=== PATIENT | male | born 1950 | race Caucasian/White ===

== ENCOUNTER 2025-01-02 11:30 | Inpatient (IN) ==
[2025-01-02 12:21] LABS: Hematocrit (blood only) 36.1 % (42.0-52.0); Hemoglobin 12.4 g/dl (14.0-18.0); Immature Granulocytes # (auto) 0.05 K/uL (0.01-0.20); Immature Granulocytes % (auto) 0.7 %; Mean Corpuscular Hemoglobin 31.8 pg (25.0-34.0); Mean Corpuscular Volume 92.6 fL (80.0-100.0); Platelet Count 267 K/uL (130-400); RDW Standard Deviation 43.3 fL (36.4-46.3); Red Blood Count 3.90 M/uL (4.70-6.10); White Blood Count 7.04 K/ul (4.8-10.8)
--- NOTE | 2025-01-02 12:25 | Emergency Department Note ---
Impression & Plan Acute UTI (urinary tract infection) ED Provider Note ED Provider Note NAME: KARTHIK KNOWLES AGE:74 SEX: Male : 1950 ARRIVES VIA: Private vehicle INFORMANT: Patient ED PROVIDER(s): Ana Hickey DO CHIEF COMPLAINT: Called by pharmacist to return due to abnormal urine culture HPI: This is a 74-year-old male presents emergency department after it was noted that his recent urine culture grew out Klebsiella ESBL which was resistant to oral agents and had only 3 options for treatment which were all IV. Patient had been started on cefdinir when he was seen and evaluated the other day and able to be discharged home. Patient denies fevers or chills, abdominal pain, back pain, nausea or vomiting. notes his appetite has been slightly decreased and he is not very good about drinking water. He states he does have dysuria and frequency. He has previously had urinary tract infections. He denies any other history of kidney problems. PAST MEDICAL HISTORY:See Below PAST SURGICAL HISTORY:See Below FAMILY HISTORY:See Below SOCIAL HISTORY:See Below HOME MEDICATIONS:See Below ALLERGIES:See Below VITALS:See Below PHYSICAL EXAMINATION: GENERAL: alert, well appearing, well nourished, no distress, non-toxic EYE EXAM: normal conjunctiva, PERRL and EOM's grossly intact OROPHARYNX: no exudate, no erythema, lips, buccal mucosa, and tongue normal and mucous membranes are moist NECK: supple, no nuchal rigidity, no adenopathy, non-tender LUNGS: Clear to auscultation. Normal chest wall mechanics, no w/r/r HEART: no murmurs, S1 normal and S2 normal ABDOMEN: abdomen soft, non-tender, normo-active bowel sounds, no masses, no rebound or guarding. BACK: Back is symmetrical on inspection and there is no deformity, no midline tenderness, no CVA tenderness. SKIN: no rashes, petechiae, orbruising UPPER EXTREMITIES: upper extremities are grossly normal. FROM, nml pulses b/l. LOWER EXTREMITIES: No pitting edema. FROM, nml pulses b/l. NEURO EXAM: Normal sensorium, cranial nerves II-XII grossly intact, normal speech, no facial droop,nogross weakness of arms, no gross weakness of legs. Gross sensation intact. No ataxia. Vital Signs: reviewed and remarkable Differential Diagnosis: UTI, pyelonephritis, bladder stone, bladder polyp, ureterolithiasis, bacteremia/sepsis, failed outpatient management, as well as others were considered MEDICAL DECISION MAKING: This is a 74-year-old male presents emerged department after being recontacted following results of urine culture which showed a Klebsiella ESBL with only IV therapies available. Patient returned to the emergency department still complaining of dysuria and frequency. He denied any other systemic or evolving symptoms. He was afebrile and hemodynamically stable. Labs drawn and sent, IV established, patient monitored on telemetry. He was started on IV fluids as well as IV ertapenem after discussion with the ED pharmacist, Jamil. Case discussed with the hospitalist team for additional evaluation and management. Consultation(s): 1234: Discussed with Dr. Ceron, [facility] hospitalist team, for additional evaluation and mgmt. ER Treatment Provided: See below Diagnostics Interpreted By Me: -Cardiac Monitoring: An order was placed for continuous cardiac monitoring. The monitor shows a rate of 70 with normal sinus rhythm. -Laboratory studies: As stated above and show below. Triage Nursing Note Reviewed Prior/Outside Records Reviewed Past Med/Surg History Problem List (Updated 01/02/25 @ 14:15 by Background Daemon) Acute UTI (urinary tract infection) (Acute) Acute UTI (Acute) Upper respiratory infection, viral (Acute) Pneumonia (Acute) Multiple pulmonary nodules COPD with emphysema Multifocal pneumonia Elevated LFTs Bilateral lower extremity edema Constipation Rhinovirus infection Acute respiratory failure with hypoxia Sepsis Hypoxia (Acute) Dyspnea (Acute) Encounter for pre-operative examination (Acute) Anxiety (Acute) Chest pain (Acute 06/26/14) Syncope, near (Acute) Unstable angina (Acute) 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 DATE/MN - HX C/P...10-20 % BLOCKAGES - NO STENT(S) History of endoscopy History of colonoscopy History of right inguinal hernia Hx of cholecystectomy + UMBILICAL HERNIA REPAIR Family History Father Myocardial infarction Brother Nephrolithiasis Social History Smoking Status: Former smoker Tobacco Type: Cigarettes Do You Dip or Chew Tobacco: No; Hx Alcohol Use: No Hx Substance Use: No Preferred Language: Peruvian Communication Ability: Effective Copyright Expert Required: No Beliefs That Will Affect Care: None marital status: Current Living Situation: Spouse Other Information That Helps Us Care for You: No Feels Safe at Home: Yes Safety Concerns: Feels Safe At This Time Assistive Devices: None Allergies Allergies Allergy/AdvReac Type Severity Reaction Status Date / Time No Known Allergies Allergy Unknown Verified 12/30/24 20:25 Home Meds Home Medications Medication Instructions Recorded Confirmed carvedilol 12.5 mg tablet 12.5 mg PO BIDM 09/01/20 01/02/25 simvastatin 20 mg tablet 20 mg PO HS 09/01/20 01/02/25 losartan 50 mg tablet 50 mg PO QAM 05/01/24 01/02/25 omeprazole 20 mg capsule,delayed 20 mg PO DAILY 01/02/25 01/02/25 release Previous Rx's Medication Instructions Recorded finasteride 5 mg tablet 5 mg PO DAILY #90 tabs 11/11/24 tamsulosin 0.4 mg capsule 0.4 mg PO DAILY #90 caps 11/11/24 L.acidop,casei,lactis,rham-B.lact,ralph 1 cap PO DAILY #10 caps 12/14/24 625 mg (10 billion cell) capsule (Advanced Probiotic) docusate sodium 100 mg capsule 100 mg PO BID PRN Constipation #30 12/14/24 caps polyethylene glycol 3350 17 gram 17 g PO DAILY PRN Constipation #15 12/14/24 oral powder packet (Miralax) ea cefdinir 300 mg capsule 300 mg PO BID 10 days #20 caps 12/30/24 ondansetron 4 mg disintegrating 4 mg PO Q8H PRN nausea and 12/30/24 tablet vomiting #30 tabs tramadol 50 mg tablet 50 mg PO BID PRN pain #11 tabs 12/30/24 Results & Data (ED) Vital Signs Vital Signs - 24 hr 01/02/25 11:33 Temperature 36.7 C Temperature Source Temporal Artery Scan Pulse Rate 76 Respiratory Rate 20 Respiratory Effort / Characteristics Non-Labored Spontaneous Respiratory Depth Normal Blood Pressure 142/75 H Blood Pressure Mean 97 Blood Pressure Position Sitting Pulse Oximetry 94 Oxygen Delivery Method Room Air Sepsis Recent Fever Within 48 Hours No Sepsis New/Unexplained Change in Mental Status No Sepsis Action Taken by Nursing No Action Required Laboratory Data 01/02/25 11:50 01/03/25 07:24 Lab Results 01/02/25 Range/Units 11:50 WBC 7.04 (4.8-10.8) K/ul RBC 3.90 L (4.70-6.10) M/uL Hgb 12.4 L (14.0-18.0) g/dl Hct 36.1 L (42.0-52.0) % MCV 92.6 (80.0-100.0) fL MCH 31.8 (25.0-34.0) pg MCHC 34.3 (32.0-36.0) g/dL RDW Std Deviation 43.3 (36.4-46.3) fL RDW Coeff of Padma 13.0 (11.5-14.5) % Plt Count 267 (130-400) K/uL MPV 10.0 (9.4-12.4) fL Immature Gran % (Auto) 0.7 % Neut % (Auto) 62.7 % Lymph % (Auto) 16.9 % Alfalfa % (Auto) 14.6 % Eos % (Auto) 4.7 % Baso % (Auto) 0.4 % Neut # (Auto) 4.41 (1.40-6.50) K/uL Lymph # (Auto) 1.19 L (1.20-3.40) K/uL [place] # (Auto) 1.03 H (0.11-0.59) K/uL Eos # (Auto) 0.33 (0.00-0.50) K/uL Baso # (Auto) 0.03 (0.00-0.20) K/uL Immature Gran # (Auto) 0.05 (0.01-0.20) K/uL PT 10.5 (9.0-12.0) Seconds INR 1.0 (0.9-1.1) Sodium 135 L (136-145) mmol/L Potassium 4.2 (3.5-5.1) mmol/L Chloride 103 (98-107) mmol/L Carbon Dioxide 25 (21-32) mmol/L Anion Gap 7 (3-11) BUN 21 (6-23) mg/dl Creatinine 0.85 (0.6-1.4) mg/dl Est Cr Clr Drug Dosing 88.9 ml/min eGFR 91.18 BUN/Creatinine Ratio 24.7 H (10-20) Glucose 95 (70-99(Fasting)) mg/dl Calcium 8.8 (8.6-10.3) mg/dl Magnesium 2.1 (1.7-2.4) mg/dl Total Bilirubin 0.6 (0.2-1.0) mg/dl AST 53 H (13-39) U/L ALT 81 H (7-52) U/L Alkaline Phosphatase 63 (34-104) U/L Total Protein 6.9 (6.0-8.3) gm/dl Albumin 3.4 (3.4-5.0) gm/dl Globulin 3.5 (2.5-4.0) gm/dl Albumin/Globulin Ratio 1.0 (0.9-2) Procalcitonin 0.08 (0-0.5) ng/ml Administered Medications Carvedilol (Carvedilol 12.5 Mg Tab) 12.5 mg PO BIDM [facility] Stop: 02/01/25 16:59 Last Admin: 01/03/25 08:29 Dose: 12.5 mg Documented By: Admin: 01/02/25 17:13 Dose: 12.5 mg Documented By: NEIL Docusate Sodium (Docusate Sodium 100 Mg Cap) 100 mg PO BID PRN PRN Reason: Constipation Stop: 02/01/25 14:14 Last Admin: 01/03/25 08:29 Dose: 100 mg Documented By: NEIL Enoxaparin Sodium (Enoxaparin Inj 40 Mg/0.4 Ml Syr) 40 mg SQ QAM [facility] Stop: 02/01/25 12:59 Last Admin: 01/03/25 10:04 Dose: 40 mg Documented By: Admin: 01/02/25 15:16 Dose: 40 mg Documented By: NEIL Finasteride (Finasteride 5 Mg Tab) 5 mg PO DAILY ТАТЬЯНА Stop: 02/02/25 08:59 Last Admin: 01/03/25 08:29 Dose: 5 mg Documented By: NEIL Ertapenem (Invanz 1000mg) 1,000 mg in 10 mls @ 2 mls/min IV Q24H ТАТЬЯНА Stop: 01/08/25 12:59 Last Admin: 01/03/25 12:47 Dose: 2 mls/min Documented By: NEIL Lactobacillus Acidophilus (Advanced Probiotic 625 Mg Capsule) 625 mg PO DAILY ТАТЬЯНА Stop: 02/02/25 08:59 Last Admin: 01/03/25 08:30 Dose: 625 mg Documented By: NEIL Losartan Potassium (Losartan Potassium 50 Mg Tab) 50 mg PO QAM ТАТЬЯНА Stop: 02/02/25 08:59 Last Admin: 01/03/25 08:29 Dose: 50 mg Documented By: NEIL Pantoprazole Sodium (Pantoprazole 40 Mg Tab) 40 mg PO DAILY ТАТЬЯНА Stop: 02/02/25 08:59 Last Admin: 01/03/25 08:30 Dose: 40 mg Documented By: NEIL Simvastatin (Simvastatin 20 Mg Tab) 20 mg PO HS ТАТЬЯНА Stop: 02/01/25 20:59 Last Admin: 01/02/25 20:15 Dose: 20 mg Documented By: RICO Tamsulosin HCl (Tamsulosin Hcl 0.4 Mg Cap) 0.4 mg PO DAILY ТАТЬЯНА Stop: 02/02/25 08:59 Last Admin: 01/03/25 08:30 Dose: 0.4 mg Documented By: NEIL Discontinued Medications Ertapenem (Invanz 1000mg) 1,000 mg in 10 mls @ 2 mls/min IV NOW STA Stop: 01/02/25 12:12 Last Admin: 01/02/25 12:30 Dose: 2 mls/min Documented By: CEF Magnesium Hydroxide (Magnesium Hydroxide Susp 30 Ml Udc) 30 ml PO NOW ONE Stop: 01/02/25 12:36 Last Admin: 01/02/25 12:37 Dose: 30 ml Documented By: CEF Discharge Plan Visit Data Chief Complaint: Infection Stated Complaint: PHARMACIST REF,NEEDS IV ANTIBIOTIC ED Provider: Ana Hickey Discharge Problem: Acute UTI (urinary tract infection) Patient Disposition: Admitted As Inpatient Condition: Fair Discharge Instructions Interventions: ED Discharge Assessment Last Done: 01/02/25 13:47
[2025-01-02] MEDS: ERTAPENEM 1000MG 1,000 MG/10 ML SYR IV STA (12:30)
[2025-01-02 12:36] LABS: Anion Gap 7.0 (3-11); Blood Urea Nitrogen 21.0 mg/dl (6-23); Calcium 8.8 mg/dl (8.6-10.3); Carbon Dioxide 25.0 mmol/L (21-32); Chloride 103.0 mmol/L (98-107); Creatinine Clr Calc Pharmacy 88.9 ml/min; Glucose 95.0 mg/dl (70-99(Fasting)); Potassium 4.2 mmol/L (3.5-5.1); Sodium 135.0 mmol/L (136-145)
[2025-01-02 12:37] LABS: Alanine Aminotransferase 81.0 U/L (7-52); Albumin Globulin Ratio 1.0 (0.9-2); Alkaline Phosphatase 63.0 U/L (34-104); Bilirubin,Total 0.6 mg/dl (0.2-1.0); Globulin 3.5 gm/dl (2.5-4.0); Magnesium 2.1 mg/dl (1.7-2.4); Total Protein 6.9 gm/dl (6.0-8.3)
[2025-01-02] MEDS: MAGNESIUM HYDROXIDE SUSP 30 ML UDC PO ONE (12:37)
[2025-01-02 13:10] LABS: INR 1.0 (0.9-1.1); Prothrombin Time 10.5 Seconds (9.0-12.0)
--- NOTE | 2025-01-02 13:12 | History & Physical Report ---
Date of Service January 02, 2025 Assessment & Plan (1) Acute UTI (urinary tract infection): Plan: Urinary symptoms since Sunday and came to emergency room on first of this month- CT abdomen pelvis showed no stone or obstructive uropathy with fat stranding around the bladder consistent with cystitis Received intravenous ceftriaxone and was sent home on oral Cefdinir Urine culture came back positive for Klebsiella pneumoniae ESBL and the patient was brought back to emergency room for IV antibiotic Remains afebrile and normal white count and no significant symptoms Started on intravenous ertapenem and will be continued Will likely need to set up home health and continue antibiotic intravenously as an outpatient to finish the course of 7 to 10 days (2) COPD with emphysema: Plan: Remains stable without any acute symptoms (3) BPH with obstruction/lower urinary tract symptoms: Plan: We will continue with current medications (4) Constipation: Plan: Has been on laxatives and will be increased the frequency (5) Hypertension: Plan: Blood pressure remains stable at 127 over a 58 Continue current medications (6) Hyperlipidemia: Plan: Continue statin LFTs are noted to be mildly elevated and will need to be monitored If significant increase in LFTs most likely need to decrease the dose or stop statin (7) Esophageal reflux: Plan: Continue Protonix Plan DVT prophylaxis Subcu Lovenox CODE STATUS Full Discussed with the patient and the in detail History of Present Illness Chief Complaint: Urinary frequency and dysuria since last Sunday Primary Care Provider: Elie Castillo MD Is a 74-year-old male significant past medical history of hypertension, hyperlipidemia, ASCVD, nonobstructive CAD, history of nephrolithiasis, GERD and also history of TIA has been complaining of frequency and dysuria since Sunday last. He was in the emergency room on first of this month and noted to have UTI got a dose of ceftriaxone and then was sent home on cefdinir. The urine culture came back positive for ESBL and he was brought into the emergency room for continuation of care with intravenous antibiotic. He denies any fever and/or chills or any sweating. Still has minimal dysuria and frequency. Denies any abdominal pain nausea and/or vomiting and does not have any other significant symptoms. Only complaint is constipation. He was started with intravenous ertapenem and will be admitted to med/telemetry for continuation of care. Allergies Allergy/AdvReac Type Severity Reaction Status Date / Time No Known Allergies Allergy Unknown Verified 12/30/24 20:25 Home Medications Medication Instructions Recorded Confirmed Type carvedilol 12.5 mg tablet 12.5 mg PO BIDM 09/01/20 01/02/25 History simvastatin 20 mg tablet 20 mg PO HS 09/01/20 01/02/25 History losartan 50 mg tablet 50 mg PO QAM 05/01/24 01/02/25 History finasteride 5 mg tablet 5 mg PO DAILY #90 tabs 11/11/24 01/02/25 Rx tamsulosin 0.4 mg capsule 0.4 mg PO DAILY #90 caps 11/11/24 01/02/25 Rx L.acidop,casei,lactis,rham-B.lact,ralph 1 cap PO DAILY #10 caps 12/14/24 01/02/25 Rx 625 mg (10 billion cell) capsule (Advanced Probiotic) docusate sodium 100 mg capsule 100 mg PO BID PRN Constipation #30 12/14/24 01/02/25 Rx caps polyethylene glycol 3350 17 gram 17 g PO DAILY PRN Constipation #15 12/14/24 01/02/25 Rx oral powder packet (Miralax) ea cefdinir 300 mg capsule 300 mg PO BID 10 days #20 caps 12/30/24 01/02/25 Rx ondansetron 4 mg disintegrating 4 mg PO Q8H PRN nausea and 12/30/24 01/02/25 Rx tablet vomiting #30 tabs tramadol 50 mg tablet 50 mg PO BID PRN pain #11 tabs 12/30/24 01/02/25 Rx omeprazole 20 mg capsule,delayed 20 mg PO DAILY 01/02/25 01/02/25 History release Past Med/Surg History Problem List (Updated 01/02/25 @ 12:25 by Ana Hickey DO) Acute UTI (urinary tract infection) (Acute) Acute UTI (Acute) Upper respiratory infection, viral (Acute) Pneumonia (Acute) Multiple pulmonary nodules COPD with emphysema Multifocal pneumonia Elevated LFTs Bilateral lower extremity edema Constipation Rhinovirus infection Acute respiratory failure with hypoxia Sepsis Hypoxia (Acute) Dyspnea (Acute) Encounter for pre-operative examination (Acute) Anxiety (Acute) Chest pain (Acute 06/26/14) Syncope, near (Acute) Unstable angina (Acute) 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 DATE/MN - HX C/P...10-20 % BLOCKAGES - NO STENT(S) History of endoscopy History of colonoscopy History of right inguinal hernia Hx of cholecystectomy + UMBILICAL HERNIA REPAIR Family History Father Myocardial infarction Brother Nephrolithiasis Social History Smoking Status: Former smoker Tobacco Type: Cigarettes Do You Dip or Chew Tobacco: No; Hx Alcohol Use: Yes (HX ON OCC/NO LONGER AT ALL) Hx Substance Use: No Preferred Language: Faroese Communication Ability: Effective Plumber Apprentice Required: No Beliefs That Will Affect Care: None marital status: Current Living Situation: Spouse and Family Feels Safe at Home: Yes Assistive Devices: None Review of Systems Review of Systems: All systems reviewed and unremarkable except as noted below patient Physical Exam Physical Exam: Lying in bed without any acute distress Constitutional: well developed, well nourished, + ill appearing and + obese Eyes: PERRL, conjunctivae normal, anicteric sclerae ENMT: external ear and nose normal, oropharynx normal Neck: trachea midline, no thyromegaly Respiratory: no respiratory distress Auscultation: + diminished lung sounds ( at the bases with minimal crackles) Cardiovascular: Rate/Rhythm: regular rate and regular rhythm; not tachycardic Heart Sounds: normal S1 and normal S2; no murmur Extremities: + edema ( trace edema bilaterally) Gastrointestinal (Abdomen): Inspection/Auscultation: + abdomen distended and normal bowel sounds Percussion/Palpation: abdomen soft; abdomen nontender Musculoskeletal: No acute arthritis involving any of the joint Neurologic: normal touch/pain/proprioception and moves all extremities; no focal motor deficits Lymphatic: no cervical or axillary lymphadenopathy Results & Data Results & Data Vital Signs (Past 12 Hours) Vital Signs Temp Pulse Pulse Resp BP BP Pulse Ox 01/02/25 12:38 71 18 127/58 L 92 01/02/25 11:33 36.7 C 76 20 142/75 H 94 O2 Del Method 01/02/25 12:38 Room Air 01/02/25 11:33 Room Air Laboratory Results Short CBC 01/02/25 Range/Units 11:50 WBC 7.04 (4.8-10.8) K/ul Hgb 12.4 L (14.0-18.0) g/dl Hct 36.1 L (42.0-52.0) % Plt Count 267 (130-400) K/uL BMP 01/02/25 11:50 Sodium 135 L Potassium 4.2 Chloride 103 Carbon Dioxide 25 BUN 21 Creatinine 0.85 Glucose 95 Calcium 8.8 Liver Function 01/02/25 Range/Units 11:50 Total Bilirubin 0.6 (0.2-1.0) mg/dl AST 53 H (13-39) U/L ALT 81 H (7-52) U/L Alkaline Phosphatase 63 (34-104) U/L Albumin 3.4 (3.4-5.0) gm/dl Medications Administered Current Inpatient Medications Enoxaparin Sodium (Enoxaparin Inj 40 Mg/0.4 Ml Syr) 40 mg SQ QAM ТАТЬЯНА Stop: 02/01/25 12:59 Code Status & VTE Plan VTE Prophylaxis Plan VTE Prophylaxis will be ordered: Yes (4) Constipation Constipation type: unspecified constipation type Qualified Code(s): K59.00 - Constipation, unspecified
--- NOTE | 2025-01-02 13:31 | XRay Report ---
HISTORY: Constipation. TECHNIQUE: Supine AP abdominal radiographs. 2 views. COMPARISON: Abdominal radiographs dated 11/07/2024. FINDINGS: Small volume of formed stool in the colon. Gas within nondilated small bowel and colon. No suspicious calcifications. Right upper quadrant surgical clips consistent with cholecystectomy. Mild degenerative changes of the hips, pelvis, and spine. Mild bibasilar airspace opacities are nonspecific. IMPRESSION: * No acute findings. * Small volume of formed stool in the colon. * Nonspecific mild bibasilar airspace opacities could represent atelectasis or pneumonia. Electronically signed by Taqueria Schneider 01-02-2025 13:30 PM
[2025-01-02] MEDS ORDERED: POLYETHYLENE (MIRALAX) 17 GM PACK PO PRN (14:15)
[2025-01-02] MEDS ORDERED: ONDANSETRON 4 MG OD TAB PO PRN (14:15)
[2025-01-02] MEDS: ENOXAPARIN INJ 40 MG/0.4 ML SYR SQ SCH (15:16)
[2025-01-02] MEDS: SIMVASTATIN 20 MG TAB PO SCH (20:15)
[2025-01-03 08:23] LABS: Alanine Aminotransferase 66.0 U/L (7-52); Albumin Globulin Ratio 1.2 (0.9-2); Alkaline Phosphatase 51.0 U/L (34-104); Anion Gap 7.0 (3-11); Bilirubin,Total 0.6 mg/dl (0.2-1.0); Blood Urea Nitrogen 14.0 mg/dl (6-23); Calcium 8.6 mg/dl (8.6-10.3); Carbon Dioxide 27.0 mmol/L (21-32); Chloride 102.0 mmol/L (98-107); Creatinine Clr Calc Pharmacy 98.2 ml/min; Globulin 3.0 gm/dl (2.5-4.0); Glucose 114.0 mg/dl (70-99(Fasting)); Potassium 4.3 mmol/L (3.5-5.1); Sodium 136.0 mmol/L (136-145); Total Protein 6.6 gm/dl (6.0-8.3)
[2025-01-03] MEDS: FINASTERIDE 5 MG TAB PO SCH (08:29)
[2025-01-03] MEDS: LOSARTAN POTASSIUM 50 MG TAB PO SCH (08:29)
[2025-01-03] MEDS: DOCUSATE SODIUM 100 MG CAP PO PRN (08:29)
[2025-01-03] MEDS: TAMSULOSIN HCL 0.4 MG CAP PO SCH (08:30)
[2025-01-03] MEDS: ADVANCED PROBIOTIC 625 MG CAPSULE PO SCH (08:30)
--- NOTE | 2025-01-03 09:36 | Hospitalist Progress Note ---
Date of Service January 03, 2025 Assessment & Plan (1) Acute UTI (urinary tract infection): Plan: 74-year-old male significant past medical history of hypertension, hyperlipidemia, ASCVD, nonobstructive CAD, history of nephrolithiasis, GERD and also history of TIA has been complaining of frequency and dysuria since last week. He was evaluated in ER on 12/30/24 CT abdomen pelvis at the time showed no stone or obstructive uropathy with fat stranding around the bladder consistent with cystitis He got intravenous ceftriaxone and was sent home on oral Cefdinir Urine culture came back positive for Klebsiella pneumoniae ESBL and the patient was called back to emergency room for IV antibiotic Continue IV ertapenem Will monitor recovery Will need 7-10 days of IV antibiotics. 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: Plan: Continue FIRE PILOT finasteride and tamsulosin (4) Constipation: Plan: Continue bowel regimen (5) Hypertension: Plan: Continue coreg, losartan Monitor (6) Hyperlipidemia: Plan: Continue statin ALT was mildly elevated at 81 on admission, 66 today AST was 53 on admission, normal at 37 today (7) Esophageal reflux: Plan: Continue Protonix Plan DVT prophylaxis Subcu Lovenox CODE STATUS Full I spent a total of 50 minutes coordinating, documenting and providing care for this patient excluding time spent in performance of separately billed services Admission and Anticipated Discharge Date Admission Date: January 02, 2025 Subjective Patient seen and examined Reports he still has dysuria and freq though getting better Denied any fevers, chills, nausea, abd pain, flank pain, hematuria, cough or shortness of breath Physical Exam Constitutional: + well hydrated; no acute distress Eyes: PERRL, conjunctivae normal, anicteric sclerae ENMT: external ear and nose normal, oropharynx normal Respiratory: normal respiratory effort; no respiratory distress Diminished breath sound Cardiovascular: Rate/Rhythm: regular rate and regular rhythm Gastrointestinal (Abdomen): normal bowel sounds, soft, nontender, no hepatosplenomegaly Musculoskeletal: No pedal edema Neurologic: PERRL, EOMI, accommodation nl, no face palsy, no dysarthria Psychiatric: A+Ox3, euthymic affect Genitourinary: No CVA tenderness Results & Data Results & Data Vital Signs (Past 12 Hours) Vital Signs Temp Pulse Pulse Resp BP Pulse Ox O2 Del Method 01/03/25 07:49 36.5 C 67 18 161/83 H 92 Room Air 01/03/25 05:48 67 01/03/25 02:43 36.7 C 70 18 129/78 96 Room Air 01/02/25 23:35 61 01/02/25 22:34 36.8 C 60 18 122/67 95 Room Air Laboratory Results Abnormal lab results 01/02/25 01/03/25 Range/Units 11:50 07:24 RBC 3.90 L (4.70-6.10) M/uL Hgb 12.4 L (14.0-18.0) g/dl Hct 36.1 L (42.0-52.0) % Lymph # (Auto) 1.19 L (1.20-3.40) K/uL [place] # (Auto) 1.03 H (0.11-0.59) K/uL Sodium 135 L (136-145) mmol/L BUN/Creatinine Ratio 24.7 H (10-20) Glucose 114 H (70-99(Fasting)) mg/dl AST 53 H (13-39) U/L ALT 81 H 66 H (7-52) U/L (4) Constipation Constipation type: unspecified constipation type Qualified Code(s): K59.00 - Constipation, unspecified
[2025-01-03] MEDS: ERTAPENEM 1000MG 1,000 MG/10 ML SYR IV SCH (12:47)
[2025-01-04 07:20] LABS: Hematocrit (blood only) 40.9 % (42.0-52.0); Hemoglobin 13.5 g/dl (14.0-18.0); Mean Corpuscular Hemoglobin 31.0 pg (25.0-34.0); Mean Corpuscular Volume 94.0 fL (80.0-100.0); Platelet Count 266 K/uL (130-400); RDW Standard Deviation 44.4 fL (36.4-46.3); Red Blood Count 4.35 M/uL (4.70-6.10); White Blood Count 7.69 K/ul (4.8-10.8)
[2025-01-04 07:39] LABS: Anion Gap 6.0 (3-11); Blood Urea Nitrogen 9.0 mg/dl (6-23); Calcium 8.8 mg/dl (8.6-10.3); Carbon Dioxide 26.0 mmol/L (21-32); Chloride 104.0 mmol/L (98-107); Creatinine Clr Calc Pharmacy 94.6 ml/min; Glucose 126.0 mg/dl (70-99(Fasting)); Potassium 4.4 mmol/L (3.5-5.1); Sodium 136.0 mmol/L (136-145)
--- NOTE | 2025-01-04 08:52 | Hospitalist Progress Note ---
Date of Service January 04, 2025 Assessment & Plan (1) Acute UTI (urinary tract infection): Plan: 74-year-old male significant past medical history of hypertension, hyperlipidemia, ASCVD, nonobstructive CAD, history of nephrolithiasis, GERD and also history of TIA has been complaining of frequency and dysuria since last week. He was evaluated in ER on 12/30/24 CT abdomen pelvis at the time showed no stone or obstructive uropathy with fat stranding around the bladder consistent with cystitis He got intravenous ceftriaxone and was sent home on oral Cefdinir Urine culture came back positive for Klebsiella pneumoniae ESBL and the patient was called back to emergency room for IV antibiotic Continue IV ertapenem Will monitor recovery Will need 7-10 days of IV antibiotics. 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: Plan: Continue [employer] finasteride and tamsulosin (4) Constipation: Plan: Continue bowel regimen (5) Hypertension: Plan: Continue coreg, losartan Monitor (6) Hyperlipidemia: Plan: Continue statin ALT was mildly elevated at 81 on admission, improved to 66 AST was 53 on admission, normalized to 37 (7) Esophageal reflux: Plan: Continue Protonix Plan DVT prophylaxis Subcu Lovenox CODE STATUS Full I spent a total of 45 minutes coordinating, documenting and providing care for this patient excluding time spent in performance of separately billed services Admission and Anticipated Discharge Date Admission Date: January 02, 2025 Subjective Patient seen and examined Reports dysuria is improving No other complaints on ROS Physical Exam Constitutional: + well hydrated; no acute distress Eyes: PERRL, conjunctivae normal, anicteric sclerae ENMT: external ear and nose normal, oropharynx normal Respiratory: normal respiratory effort; no respiratory distress Cardiovascular: Rate/Rhythm: regular rate and regular rhythm Gastrointestinal (Abdomen): normal bowel sounds, soft, nontender, no hepa tosplenomegaly Musculoskeletal: No pedal edema Neurologic: PERRL, EOMI, accommodation nl, no face palsy, no dysarthria Psychiatric: A+Ox3, euthymic affect Results & Data Results & Data Vital Signs (Past 12 Hours) Vital Signs Temp Pulse Pulse Resp BP BP Pulse Ox 01/04/25 07:38 36.5 C 77 20 148/79 H 92 01/04/25 05:34 62 01/04/25 03:07 36.7 C 71 18 137/66 92 01/03/25 22:31 36.6 C 72 18 120/67 94 01/03/25 21:55 82 O2 Del Method 01/04/25 07:38 Room Air 01/04/25 05:34 01/04/25 03:07 Room Air 01/03/25 22:31 Room Air 01/03/25 21:55 Laboratory Results Abnormal lab results 01/04/25 Range/Units 06:55 RBC 4.35 L (4.70-6.10) M/uL Hgb 13.5 L (14.0-18.0) g/dl Hct 40.9 L (42.0-52.0) % Glucose 126 H (70-99(Fasting)) mg/dl (4) Constipation Constipation type: unspecified constipation type Qualified Code(s): K59.00 - Constipation, unspecified
[2025-01-05 05:45] LABS: Hematocrit (blood only) 38.4 % (42.0-52.0); Hemoglobin 12.7 g/dl (14.0-18.0); Mean Corpuscular Hemoglobin 31.1 pg (25.0-34.0); Mean Corpuscular Volume 93.9 fL (80.0-100.0); Platelet Count 306 K/uL (130-400); RDW Standard Deviation 44.5 fL (36.4-46.3); Red Blood Count 4.09 M/uL (4.70-6.10); White Blood Count 8.51 K/ul (4.8-10.8)
[2025-01-05 05:58] LABS: Anion Gap 6.0 (3-11); Blood Urea Nitrogen 10.0 mg/dl (6-23); Calcium 8.4 mg/dl (8.6-10.3); Carbon Dioxide 25.0 mmol/L (21-32); Chloride 105.0 mmol/L (98-107); Creatinine Clr Calc Pharmacy 86.9 ml/min; Glucose 113.0 mg/dl (70-99(Fasting)); Potassium 4.1 mmol/L (3.5-5.1); Sodium 136.0 mmol/L (136-145)
--- NOTE | 2025-01-05 11:50 | Hospitalist Progress Note ---
Date of Service January 05, 2025 Assessment & Plan (1) Acute UTI (urinary tract infection): Plan: 74-year-old male significant past medical history of hypertension, hyperlipidemia, ASCVD, nonobstructive CAD, history of nephrolithiasis, GERD and also history of TIA has been complaining of frequency and dysuria since last week. 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: Plan: Continue [employer] finasteride and tamsulosin (4) Constipation: Plan: Continue bowel regimen (5) Hypertension: Plan: Continue coreg, losartan Monitor (6) Hyperlipidemia: Plan: Continue statin ALT was mildly elevated at 81 on admission, improved to 66 AST was 53 on admission, normalized to 37 (7) Esophageal reflux: Plan: Continue Protonix Plan DVT prophylaxis Subcu Lovenox CODE STATUS Full I spent a total of 40 minutes coordinating, documenting and providing care for this patient excluding time spent in performance of separately billed services Admission and Anticipated Discharge Date Admission Date: January 02, 2025 Subjective Patient seen and examined Reports minimal dysuria today Reports freq is resolved Denied other complaints Physical Exam Constitutional: + well hydrated; no acute distress Eyes: PERRL, conjunctivae normal, anicteric sclerae ENMT: external ear and nose normal, oropharynx normal Respiratory: normal respiratory effort; no respiratory distress Cardiovascular: Rate/Rhythm: regular rate and regular rhythm Gastrointestinal (Abdomen): normal bowel sounds, soft, nontender, no hepatosplenomegaly Musculoskeletal: No pedal edema Neurologic: PERRL, EOMI, accommodation nl, no face palsy, no dysarthria Psychiatric: A+Ox3, euthymic affect Results & Data Results & Data Vital Signs (Past 12 Hours) Vital Signs Temp Pulse Pulse Resp BP Pulse Ox O2 Del Method 01/05/25 11:25 37.0 C 67 18 107/63 94 Room Air 01/05/25 07:49 73 01/05/25 07:40 36.4 C L 79 18 126/74 93 Room Air 01/05/25 03:10 36.2 C L 76 18 145/67 H 90 Room Air 01/05/25 00:11 67 Laboratory Results Abnormal lab results 01/05/25 Range/Units 05:29 RBC 4.09 L (4.70-6.10) M/uL Hgb 12.7 L (14.0-18.0) g/dl Hct 38.4 L (42.0-52.0) % MPV 9.3 L (9.4-12.4) fL Glucose 113 H (70-99(Fasting)) mg/dl Calcium 8.4 L (8.6-10.3) mg/dl (4) Constipation Constipation type: unspecified constipation type Qualified Code(s): K59.00 - Constipation, unspecified
[2025-01-06 00:06] VITALS: TEMP 98.2
[2025-01-06 03:40] VITALS: RESP 18
[2025-01-06 07:16] LABS: Hematocrit (blood only) 42.3 % (42.0-52.0); Hemoglobin 14.0 g/dl (14.0-18.0); Mean Corpuscular Hemoglobin 31.0 pg (25.0-34.0); Mean Corpuscular Volume 93.6 fL (80.0-100.0); Platelet Count 404 K/uL (130-400); RDW Standard Deviation 45.3 fL (36.4-46.3); Red Blood Count 4.52 M/uL (4.70-6.10); White Blood Count 9.53 K/ul (4.8-10.8)
[2025-01-06 07:24] VITALS: PULSE 77; O2SAT 94
[2025-01-06 07:34] LABS: Anion Gap 5.0 (3-11); Blood Urea Nitrogen 11.0 mg/dl (6-23); Calcium 9.0 mg/dl (8.6-10.3); Carbon Dioxide 28.0 mmol/L (21-32); Chloride 102.0 mmol/L (98-107); Creatinine Clr Calc Pharmacy 84.5 ml/min; Glucose 118.0 mg/dl (70-99(Fasting)); Potassium 4.4 mmol/L (3.5-5.1); Sodium 135.0 mmol/L (136-145)
--- NOTE | 2025-01-06 09:07 | Discharge Summary ---
Date of Service January 06, 2025 Admission HPI Per Admitting Provider Is a 74-year-old male significant past medical history of hypertension, hyperlipidemia, ASCVD, nonobstructive CAD, history of nephrolithiasis, GERD and also history of TIA has been complaining of frequency and dysuria since Sunday last. He was in the emergency room on first of this month and noted to have UTI got a dose of ceftriaxone and then was sent home on cefdinir. The urine culture came back positive for ESBL and he was brought into the emergency room for continuation of care with intravenous antibiotic. He denies any fever and/or chills or any sweating. Still has minimal dysuria and frequency. Denies any abdominal pain nausea and/or vomiting and does not have any other significant symptoms. Only complaint is constipation. He was started with intravenous ertapenem and will be admitted to [facility]/telemetry for continuation of care. Admission Exam Per Admitting Provider Physical Exam: Lying in bed without any acute distress Constitutional: well developed, well nourished, + ill appearing and + obese Eyes: PERRL, conjunctivae normal, anicteric sclerae ENMT: external ear and nose normal, oropharynx normal Neck: trachea midline, no thyromegaly Respiratory: no respiratory distress Auscultation: + diminished lung sounds ( at the bases with minimal crackles) Cardiovascular: Rate/Rhythm: regular rate and regular rhythm; not tachycardic Heart Sounds: normal S1 and normal S2; no murmur Extremities: + edema ( trace edema bilaterally) Gastrointestinal (Abdomen): Inspection/Auscultation: + abdomen distended and normal bowel sounds Percussion/Palpation: abdomen soft; abdomen nontender Musculoskeletal: No acute arthritis involving any of the joint Neurologic: normal touch/pain/proprioception and moves all extremities; no focal motor deficits Lymphatic: no cervical or axillary lymphadenopathy Principal Diagnosis Complicated Urinary Tract Infection ESBL UTI Discharge Exam Constitutional + well hydrated; no acute distress Eyes PERRL, conjunctivae normal, anicteric sclerae ENMT external ear and nose normal, oropharynx normal Respiratory normal respiratory effort; no respiratory distress Cardiovascular Rate/Rhythm: regular rate and regular rhythm Gastrointestinal (Abdomen) normal bowel sounds, soft, nontender, no hepatosplenomegaly Musculoskeletal No pedal edema Neurologic PERRL, EOMI, accommodation nl, no face palsy, no dysarthria Psychiatric A+Ox3, euthymic affect Discharge Data Allergies Allergy/AdvReac Type Severity Reaction Status Date / Time No Known Allergies Allergy Unknown Verified 12/30/24 20:25 Consultations 01/02/25 12:36 ED Decision to Admit Stat Hospital Course (1) Acute UTI (urinary tract infection): 74-year-old male significant past medical history of hypertension, hyperlipidemia, ASCVD, nonobstructive CAD, history of nephrolithiasis, GERD and also history of TIA has been complaining of frequency and dysuria since last week. 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: Continue [employer] finasteride and tamsulosin (4) Constipation: Continue bowel regimen (5) Hypertension: Continue coreg, losartan Monitor (6) Hyperlipidemia: Continue statin ALT was mildly elevated at 81 on admission, improved to 66 AST was 53 on admission, normalized to 37 (7) Esophageal reflux: Continue Protonix Total Time Total Time Spent Total Time Spent (In Minutes): 35 Total Time Includes: Examination of the Patient, Discharge Planning and Medication Reconciliation Discharge Plan Discharge Items Patient Disposition: Home - Self-Care Reason For Visit: ESBL UTI Discharge Diagnosis: Complicated Urinary Tract Infection ESBL UTI Condition on Discharge: Fair Activity: Resume your previous activity Non-emergency contact: Primary Care Provider Call non-emergency contact if: you have any medication questions Follow-up/Referrals: Elie Castillo MD [Primary Care Provider] - (Date & Time 01/12/2025 12:00 PM Provider: Elie Castillo MD [facility] ) Diet: Heart Healthy Addtl Attending Provider Instructions: Mr Calderon You were admitted and treated for the above listed diagnosis. You are being discharged to continue IV ertapenem at [facility] till 01/11/25. Please ensure follow up with your Primary Doctor. It was a pleasure taking care of you Pending Studies at Discharge: No Stand-Alone Forms: [facility], Smoking Cessation Medications and DC Order Prescriptions: Continued simvastatin 20 mg tablet 20 mg PO HS carvedilol 12.5 mg tablet 12.5 mg PO BIDM tamsulosin 0.4 mg capsule 0.4 mg PO DAILY Qty: 90 3RF finasteride 5 mg tablet 5 mg PO DAILY Qty: 90 3RF polyethylene glycol 3350 [Miralax] 17 gram Powder In Packet 17 g PO DAILY PRN (Reason: Constipation) Qty: 15 0RF docusate sodium 100 mg Capsule 100 mg PO BID PRN (Reason: Constipation) Qty: 30 0RF Advanced Probiotic 625 mg (10 billion cell) Capsule 1 cap PO DAILY Qty: 10 0RF tramadol 50 mg tablet 50 mg PO BID PRN (Reason: pain) Qty: 11 0RF ondansetron 4 mg tablet,disintegrating 4 mg PO Q8H PRN (Reason: nausea and vomiting) Qty: 30 0RF omeprazole 20 mg capsule,delayed release(DR/EC) 20 mg PO DAILY losartan 50 mg tablet 50 mg PO QAM Discontinued cefdinir 300 mg capsule 300 mg PO BID 10 Days Qty: 20 0RF Discharge Orders: Discharge Order (Routine); Ordered 01/06/25 Ordered By: Nida Wilks/Other Patient Handouts: Anatomy of the Male Urinary Tract, Urinary Tract Infections in Men Admission Data Admit Date/Time: 01/02/25 12:53 Attending Provider: Nida Harry I. Admit Provider: Loyd Ceron Primary Care Provider: Elie Castillo Other Providers: Loyd Ceron Other Interventions: Discharge Summary Assessment (RN) Last Done: 01/06/25 09:32
[2025-01-06 09:34] VITALS: BP 137/78
== END 2025-01-06 12:15 | disposition home or self-care (01) | DRG 690 ==
LOC: ED 11:30 → SUATTDRO 12:53 → 2N 12:53 → 2W 01-05 19:24